=== PATIENT | female | born 1985 | race Caucasian/White ===

== ENCOUNTER → 2019-01-12 | Outpatient (CLI) | payer MEDICAID ==
--- NOTE | 2019-01-12 09:58 | XR ---
EXAMINATION TYPE: XR knee complete RT DATE OF EXAM: 01/12/2019 COMPARISON: NONE HISTORY: Anterior knee pain TECHNIQUE: Three views are submitted. FINDINGS: Severe arthropathy of the medial compartment of the knee joint. Mild arthropathy patellofemoral joint and small suprapatellar bursal fluid collection. No erosive changes. IMPRESSION: 1. Osteoarthritis 2. Small suprapatellar bursal fluid collection. If there is concern for internal derangement correlat e with MRI.
--- NOTE | 2019-01-12 10:05 | FL ---
Barium swallow HISTORY: Dysphagia 1 minute 21 seconds fluoroscopy time, 55 intraoperative images Patient was given barium to drink. Evaluation under real-time fluoroscopy was performed. The swallowing mechanism is normal. No abnormal collections of contrast material. No evident gastroes ophageal reflux. No extrinsic or intrinsic esophageal abnormality. IMPRESSION: Normal barium swallow.
== END | disposition home or self-care (01) ==
LOC: RADUSWWP 08:57
PROVIDERS: ATTEND Otolaryngology
DX: M17.11 Unilateral primary osteoarthritis, right knee (principal); R13.10 Dysphagia, unspecified
CPT/HCPCS: 74220

== ENCOUNTER → 2021-04-05 | Outpatient (CLI) | payer OTHER ==
--- NOTE | 2021-04-05 20:10 | XR ---
EXAMINATION TYPE: XR shoulder complete LT DATE OF EXAM: 04/05/2021 COMPARISON: NONE HISTORY: Pain TECHNIQUE: Three views are submitted. FINDINGS: The osseous structures are intact. There is no acute fracture or dislocation. The AC joint is maint ained. IMPRESSION: 1. No acute process.
--- NOTE | 2021-04-05 20:34 | XR ---
EXAMINATION TYPE: XR clavicle LT DATE OF EXAM: 04/05/2021 COMPARISON: NONE HISTORY: Pain TECHNIQUE: 2 view submitted FINDINGS: AC joint arthropathy. No acute fracture or dislocation. Osseous structures intact. IMPRESSION: No acute fracture
== END | disposition home or self-care (01) ==
LOC: RADXRMAIN 18:29
PROVIDERS: ATTEND Physician Assistant
DX: M25.512 Pain in left shoulder (principal)